=== PATIENT | male | born 1970 | race Caucasian/White ===

== ENCOUNTER → 2016-12-21 | Outpatient (REF) | LOC: WSOH 09:40 | DX: Z02.89 Encounter for other administrative examinations (principal) | CPT/HCPCS: G0463 ==

== ENCOUNTER → 2017-01-25 | Outpatient (REF) | LOC: WSOH 08:03 | DX: Z00.00 Encounter for general adult medical examination without abnormal findings (principal) ==

== ENCOUNTER → 2017-01-25 | Outpatient (REF) | LOC: WSOH 08:04 | DX: Z00.00 Encounter for general adult medical examination without abnormal findings (principal) ==